=== PATIENT | female | born 1995 | race Caucasian/White ===

== ENCOUNTER → 2022-02-18 | Outpatient (CLI) | payer BC, OTHER ==
[~2022-02-18] MED LIST: CEPH500 PO; ESCI20 PO; LEVOCETIRIZINE D5 MG PO; MAGIC MOUTHWASH; Mirena1 EACH; Pyridium200 MG PO
[2022-02-20 15:08] LABS: CHLAMYDIA TRACHOMATIS, NAA Negative (Negative)
== END ==
LOC: LAB SHORT 13:49
PROVIDERS: Obstetrics & Gynecology
DX: Z01.419 Encounter for gynecological examination (general) (routine) without abnormal findings (principal); Z11.3 Encounter for screening for infections with a predominantly sexual mode of transmission
CPT/HCPCS: 87491; 87591; G0123

== ENCOUNTER → 2023-04-28 | Outpatient (CLI) | payer BC ==
[2023-04-29 09:30] LABS: Candida species (DNA Probe) Positive (NEGATIVE); G. vaginalis (DNA Probe) Negative (NEGATIVE); T. vaginalis (DNA Probe) Negative (NEGATIVE)
== END ==
LOC: LAB SHORT 16:02 → LAB 16:02
PROVIDERS: Obstetrics & Gynecology
DX: N76.0 Acute vaginitis (principal)
CPT/HCPCS: 87480; 87510; 87660

== ENCOUNTER 2023-07-23 05:40 | Emergency (ER) | payer BC ==
[~2023-07-23] VITALS: Ht 172.7 cm; Wt 72.6 kg
[2023-07-23] MEDS ORDERED: PRENATAL TABLE1 EAC2 PO (06:23)
[2023-07-23] MEDS ORDERED: Acetaminophen 500 MG Tab PO ONE (06:30)
[2023-07-23] MEDS ORDERED: Metoclopramide HCl 5MG / ML 2ML Vial IV ONE (06:30)
[2023-07-23] MEDS ORDERED: Morphine Sulfate 4 MG/1 ML Injection IV ONE (06:30)
[2023-07-23 06:32] LABS: Source, Urine Clean Catch
[2023-07-23 06:36] LABS: Appearance, Urine Clear (Clear); Bilirubin, Urine Neg (Neg); Blood, Urine 4+ (Neg); Color, Urine Yellow (P-Yellow); Glucose Qualitative, Urine Neg (Neg); Ketones, Urine Neg (Neg); Leukocyte Esterase, Urine Neg (Neg); Nitrite, Urine Neg (Neg); Protein, Urine Neg (Neg); Urobilinogen, Urine NORM (Normal)
[2023-07-23 06:42] LABS: BASOPHILS ABSOLUTE AUTO 0.05 K/mm3 (0.00-0.23); BASOPHILS PERCENT AUTO 0 % (0-2); EOSINOPHILS ABSOLUTE AUTO 0.16 K/mm3 (0.00-0.68); EOSINOPHILS PERCENT AUTO 1 % (0-6); Hematocrit 37.1 % (33.0-51.0); Hemoglobin 12.4 g/dL (11.5-16.0); IMMATURE GRAN ABSOLUTE AUTO 0.09 K/mm3 (0.00-0.10); IMMATURE GRAN PERCENT AUTO 1 % (0-1); LYMPHOCYTES ABSOLUTE AUTO 2.17 K/mm3 (0.84-5.20); LYMPHOCYTES PERCENT AUTO 19 % (21-46); MONOCYTES ABSOLUTE AUTO 0.67 K/mm3 (0.16-1.47); MONOCYTES PERCENT AUTO 6 % (4-13); Mean Corpuscular HGB 31.5 pg (26.0-34.0); Mean Corpuscular HGB Conc 33.4 g/dL (31.5-36.5); Mean Corpuscular Volume 94 fL (80-100); Mean Platelet Volume 10.4 fL (9.1-12.4); NEUTROPHILS ABSOLUTE AUTO 8.58 K/mm3 (1.96-9.15); NEUTROPHILS PERCENT AUTO 73 % (41-73); Platelet Count 257 K/mm3 (150-400); RDW Coefficient Variation 13.2 % (11.7-14.2); RDW Standard Deviation 45.2 fL (35.1-46.3); Red Blood Cell Count 3.94 M/mm3 (3.80-5.20); White Blood Cell Count 11.72 K/mm3 (4.00-11.30)
[2023-07-23] MEDS ORDERED: FAMO20 (06:54)
[2023-07-23 07:01] LABS: Bacteria Few /hpf; Mucus Light (0-Heavy); Red Blood Cells, Urine 25-50 /hpf (0-2); Squamous Epithelial Cells Rare /hpf (Few); White Blood Cells, Urine 0-2 /hpf (0-5)
[2023-07-23 07:01] LABS: Albumin/Globulin Ratio 0.8 (0.8-1.8); Bilirubin, Total 0.4 mg/dL (0.1-1.0); Bun/Creatinine Ratio 19.9 (12.0-20.0); Creatinine, Blood 0.65 mg/dL (0.40-1.00); Globulin, Blood 3.9 g/dL (2.2-4.0); Potassium, Blood 3.8 mmol/L (3.5-5.5); Total Protein, Blood 6.9 g/dL (6.4-8.2)
[2023-07-23] MEDS ORDERED: OXYC5 PO (07:58)
[2023-07-23 08:00] VITALS: BP 111/73
[2023-07-23] MEDS ORDERED: ACET500 PO (13:52)
[2023-07-23] MEDS ORDERED: NARCAN4 M1 (14:56)
[2023-07-23] MEDS ORDERED: MORP15ER PO (14:56)
== END 2023-07-23 08:15 | disposition home or self-care (01) ==
LOC: ER 05:40
PROVIDERS: Student in an Organized Health Care Education/Training Program
DX: O99.891 Other specified diseases and conditions complicating pregnancy (principal); N13.2 Hydronephrosis with renal and ureteral calculous obstruction; Z3A.25 25 weeks gestation of pregnancy
CPT/HCPCS: 76770; 80053; 81001; 85025; 96374; 96375; 99284-25; A9270; J2270; J2765

== ENCOUNTER 2023-07-23 13:34 | Emergency (ER) | payer BC ==
[~2023-07-23] VITALS: Ht 172.7 cm; Wt 72.6 kg
[~2023-07-23 13:34] MED LIST changes: +FAMO20; +OXYC5 PO; +PRENATAL TABLE1 EAC2 PO
[2023-07-23 13:51] VITALS: BP 114/70
[2023-07-23] MEDS ORDERED: ACET500 PO (13:52)
[2023-07-23] MEDS ORDERED: Morphine Sulfate 20 MG/1ML 1 ML Oral Syringe PO ONE (14:10)
[2023-07-23] MEDS ORDERED: MORP15ER PO (14:56)
[2023-07-23] MEDS ORDERED: NARCAN4 M1 (14:56)
== END 2023-07-23 15:01 | disposition home or self-care (01) ==
LOC: ER 13:34
DX: O99.891 Other specified diseases and conditions complicating pregnancy (principal); N13.2 Hydronephrosis with renal and ureteral calculous obstruction; Z3A.25 25 weeks gestation of pregnancy; Z79.899 Other long term (current) drug therapy
CPT/HCPCS: 99283; A9270

== ENCOUNTER → 2023-10-04 | Outpatient (CLI) | payer BC ==
[~2023-10-04] MED LIST changes: +ACET500 PO; +MORP15ER PO; +NARCAN4 M1
== END ==
LOC: LAB 15:41 → LAB SHORT 15:41
DX: O09.93 Supervision of high risk pregnancy, unspecified, third trimester (principal); Z3A.00 Weeks of gestation of pregnancy not specified
CPT/HCPCS: 87081; 87150

== ENCOUNTER 2023-10-19 12:57 | Inpatient (IN) | payer BC ==
[2023-10-19] VITALS (21 sets, daily range): BP systolic 99–139; BP diastolic 52–80
[~2023-10-19] VITALS: Ht 172.7 cm; Wt 84.3 kg
[2023-10-19] MEDS ORDERED: FentaNYL Citrate 50 MCG/ML 2 ML Injection IV PRN (13:45)
[2023-10-19] MEDS ORDERED: Famotidine 20 MG Tab PO PRN (13:45)
[2023-10-19] MEDS ORDERED: Lactated Ringer's 1,000 ML IV SCH ×3 (13:55→23:45)
[2023-10-19] MEDS ORDERED: Methylergonovine Maleate 0.2MG / ML 1ML Amp IM PRN ×2 (13:55→23:45)
[2023-10-19] MEDS ORDERED: Oxytocin 10 Unit / ML Vial IM PRN (13:55)
[2023-10-19] MEDS ORDERED: Tranexamic Acid 100 ML IV SCH (13:55)
[2023-10-19] MEDS ORDERED: Misoprostol 200 MCG Tab XX PRN (13:55)
[2023-10-19] MEDS ORDERED: Carboprost Tromethamine 250 MCG/ML 1ML Amp IM PRN ×2 (13:55→23:50)
[2023-10-19] MEDS ORDERED: Misoprostol 200 MCG Tab PR PRN ×2 (13:55→23:45)
[2023-10-19] MEDS ORDERED: OXYTOCIN/RINGER'S LACTATE 500 ML IV SCH ×2 (13:55→23:55)
[2023-10-19] MEDS ORDERED: FentaNYL 2mcg/ml-Bup 0.1% Epd 250 ML EPI PRN (13:55)
[2023-10-19] MEDS ORDERED: Lactated Ringer's 1,000 ML IV PRN (13:55)
[2023-10-19] MEDS ORDERED: ePHEDrine Sulfate 50 MG/ML 1ML Injection XX PRN (13:55)
[2023-10-19] MEDS ORDERED: Acetaminophen 500 MG Tab PO PRN (14:00)
[2023-10-19] MEDS ORDERED: Ondansetron HCl 2 MG / ML 2ML Vial IV PRN (14:00)
[2023-10-19] MEDS ORDERED: Calcium Carbonate 500 MG Tab Chew PO PRN (14:00)
[2023-10-19 14:47] LABS: BASOPHILS ABSOLUTE AUTO 0.02 K/mm3 (0.00-0.23); BASOPHILS PERCENT AUTO 0 % (0-2); EOSINOPHILS ABSOLUTE AUTO 0.07 K/mm3 (0.00-0.68); EOSINOPHILS PERCENT AUTO 1 % (0-6); Hematocrit 34.3 % (33.0-51.0); Hemoglobin 12.1 g/dL (11.5-16.0); IMMATURE GRAN ABSOLUTE AUTO 0.08 K/mm3 (0.00-0.10); IMMATURE GRAN PERCENT AUTO 1 % (0-1); LYMPHOCYTES ABSOLUTE AUTO 1.62 K/mm3 (0.84-5.20); LYMPHOCYTES PERCENT AUTO 20 % (21-46); MONOCYTES ABSOLUTE AUTO 0.52 K/mm3 (0.16-1.47); MONOCYTES PERCENT AUTO 6 % (4-13); Mean Corpuscular HGB 31.8 pg (26.0-34.0); Mean Corpuscular HGB Conc 35.3 g/dL (31.5-36.5); Mean Corpuscular Volume 90 fL (80-100); Mean Platelet Volume 10.6 fL (9.1-12.4); NEUTROPHILS ABSOLUTE AUTO 6.01 K/mm3 (1.96-9.15); NEUTROPHILS PERCENT AUTO 72 % (41-73); Platelet Count 219 K/mm3 (150-400); RDW Coefficient Variation 13.2 % (11.7-14.2); RDW Standard Deviation 43.4 fL (35.1-46.3); Red Blood Cell Count 3.81 M/mm3 (3.80-5.20); White Blood Cell Count 8.32 K/mm3 (4.00-11.30)
[2023-10-19] MEDS ORDERED: Ibuprofen 400 MG Tab PO PRN (23:45)
[2023-10-19] MEDS ORDERED: Benzocaine Topical Anesthetic Spray 60GM TOP PRN (23:45)
[2023-10-19] MEDS ORDERED: Acetaminophen 325 MG TABLET PO PRN (23:45)
[2023-10-19] MEDS ORDERED: Oxytocin 10 Unit / ML Vial IM ONE (23:50)
[2023-10-19] MEDS ORDERED: Polyethylene Glycol 3350 17 gm PO PRN (23:50)
[2023-10-19] MEDS ORDERED: Lanolin Cream TOP PRN (23:50)
[2023-10-19] MEDS ORDERED: Witch Hazel/Glycerin PADS TOP PRN (23:50)
[2023-10-20] VITALS (9 sets, daily range): BP systolic 99–123; BP diastolic 51–80
[2023-10-20] MEDS ORDERED: Ketorolac Tromethamine 30mg Vial IV SCH
[2023-10-20 05:55] LABS: BASOPHILS ABSOLUTE AUTO 0.04 K/mm3 (0.00-0.23); BASOPHILS PERCENT AUTO 0 % (0-2); EOSINOPHILS ABSOLUTE AUTO 0.05 K/mm3 (0.00-0.68); EOSINOPHILS PERCENT AUTO 0 % (0-6); Hematocrit 34.9 % (33.0-51.0); Hemoglobin 12.1 g/dL (11.5-16.0); IMMATURE GRAN PERCENT AUTO 1 % (0-1); LYMPHOCYTES PERCENT AUTO 12 % (21-46); MONOCYTES PERCENT AUTO 5 % (4-13); Mean Corpuscular HGB 31.5 pg (26.0-34.0); Mean Corpuscular HGB Conc 34.7 g/dL (31.5-36.5); Mean Corpuscular Volume 91 fL (80-100); Mean Platelet Volume 10.5 fL (9.1-12.4); NEUTROPHILS ABSOLUTE AUTO 12.53 K/mm3 (1.96-9.15); NEUTROPHILS PERCENT AUTO 82 % (41-73); Platelet Count 203 K/mm3 (150-400); RDW Coefficient Variation 13.2 % (11.7-14.2); RDW Standard Deviation 43.8 fL (35.1-46.3); Red Blood Cell Count 3.84 M/mm3 (3.80-5.20); White Blood Cell Count 15.32 K/mm3 (4.00-11.30)
[2023-10-20] MEDS ORDERED: Prenatal Vit/FE Fumarate/FA 1 Tab PO SCH (09:00)
--- NOTE | 2023-10-20 18:58 | NUR ---
REPT TO ON COMING SHIFT
[2023-10-20] MEDS ORDERED: Ketorolac Tromethamine 30mg Vial IV ONE (19:40)
[2023-10-21 04:21] VITALS: BP 116/61
[2023-10-21] MEDS ORDERED: IBUP800 PO (07:17)
[2023-10-21 07:26] VITALS: BP 120/76
[2023-10-21 11:12] VITALS: BP 130/64
== END 2023-10-21 11:38 | disposition home or self-care (01) | DRG 807 ==
LOC: OBS 12:57 → BC 12:57 → OBS 13:37 → BC 13:38
PROVIDERS: Family Medicine; ADMIT Obstetrics & Gynecology
PROC: 10E0XZZ Delivery of Products of Conception, External Approach (ICD-10-PCS; principal; 2023-10-19)
PROC: 10907ZC Drainage of Amniotic Fluid, Therapeutic from Products of Conception, Via Natural or Artificial Opening (ICD-10-PCS; 2023-10-19)
PROC: 3E0R3BZ Introduction of Anesthetic Agent into Spinal Canal, Percutaneous Approach (ICD-10-PCS; 2023-10-19)
PROC: 00HU33Z Insertion of Infusion Device into Spinal Canal, Percutaneous Approach (ICD-10-PCS; 2023-10-19)
DX: O42.02 Full-term premature rupture of membranes, onset of labor within 24 hours of rupture (principal); Z37.0 Single live birth; Z87.442 Personal history of urinary calculi; O99.62 Diseases of the digestive system complicating childbirth; K21.9 Gastro-esophageal reflux disease without esophagitis; E03.9 Hypothyroidism, unspecified; Z90.89 Acquired absence of other organs; Z87.440 Personal history of urinary (tract) infections; Z91.018 Allergy to other foods; Z79.899 Other long term (current) drug therapy; Z3A.37 37 weeks gestation of pregnancy; O69.81X0 Labor and delivery complicated by cord around neck, without compression, not applicable or unspecified; O76 Abnormality in fetal heart rate and rhythm complicating labor and delivery; O70.0 First degree perineal laceration during delivery
CPT/HCPCS: 36415; 51702; 85025; 86850; 86900; 86901; A9270; J1885; J2590; J7120